=== PATIENT | female | born 1975 | race Caucasian/White ===

== ENCOUNTER 2019-01-27 20:49 | Emergency (ER) | payer SELFPAY ==
[~2019-01-27] VITALS: Ht 162.6 cm; Wt 86.5 kg
[2019-01-27 20:54] VITALS: BP 145/77; PULSE 87; RESP 18; Ht 162.6 cm; Wt 86.5 kg
[2019-01-27] MEDS ORDERED: KETOROLAC 60 MG INJ IM STA (21:41)
--- NOTE | 2019-01-27 21:44 | ERD ---
ER Documentation Chief Complaint Chief Complaint PAIN/ NUMBNESS TO LEFT THUMB. SHORT ARM CAST WITH SCREWS INSERTED. HPI 43-year-old presents with complaint of pain and numbness to the left thumb. Patient states that she fractured the thumb a year ago and the pain never fully resolved, therefore she had to get surgery 3 weeks ago. She is unsure what surgery she got. States that the pain started this morning. She is due to get her cast off this Friday. Denies any fevers, chills, swelling. ROS All systems reviewed and are negative except as per history of present illness. Medications Home Meds Active Scripts Ibuprofen* (Motrin*) 600 Mg Tab, 600 MG PO Q6, #30 TAB Prov:DAVID SONG 01/27/19 Allergies Allergies: Coded Allergies: codeine (Verified Allergy, Unknown, 01/27/19) morphine (Verified Allergy, Unknown, 01/27/19) PMhx/Soc History of Surgery: Yes (left first digit joint replacement) Anesthesia Reaction: No Hx Neurological Disorder: No Hx Respiratory Disorders: No Hx Cardiac Disorders: No Hx Psychiatric Problems: No Hx Miscellaneous Medical Probl: No Hx Alcohol Use: No Hx Substance Use: No Hx Tobacco Use: No Smoking Status: Never smoker FmHx Family History: No diabetes, No coronary disease, No other Physical Exam Vitals Vital Signs Date Temp Pulse Resp B/P (MAP) Pulse Ox O2 O2 Flow FiO2 Time Delivery Rate 01/27/19 98.4 87 18 145/77 99 20:54 (99) Physical Exam Const: No acute distress Head: Atraumatic Eyes: Normal Conjunctiva ENT: Normal External Ears, Nose and Mouth. Neck: Full range of motion. No meningismus. Resp: Clear to auscultation bilaterally Cardio: Regular rate and rhythm, no murmurs Abd: Soft, non tender, non distended. Normal bowel sounds Skin: No petechiae or rashes Back: No midline or flank tenderness Left upper extremity: Cast was removed off of left thumb and wrist. There is tenderness to palpation over left thumb with no numbness. There is no edema, erythema, ecchymosis, or lori deformity noted. Overlying skin is intact. Compartments are soft and warm. There is no pallor or cyanosis. Range of motion, distal pulses, and distal sensation is intact. There is normal cap refill. No signs of infection at the incision site. Neur: Awake and alert Psych: Normal Mood and Affect Results 24 hrs Current Medications Medications Dose Sig/Shorty Start Time Status Last (Trade) Ordered Route PRN Stop Time Admin Dose Reason Admin Ketorolac 60 mg ONCE STAT 01/27/19 DC 01/27/19 Tromethamine IM 21:41 22:13 (Toradol) 01/27/19 21:42 Procedures/MDM MDM: Patient was given Toradol in the ER. Per Dr. Delarosa, patient's cast was removed to assess for compartment syndrome. There are no signs of compartment syndrome. In addition, patient is neurovascularly intact. Pulses are intact. There is sensation that is intact. Compartments were all soft and warm. Patient was advised to follow-up with her orthopedist tomorrow regarding the pain. There are no signs of infection over the surgery site. Patient given ibuprofen for pain as she does not tolerate opiates. I have low suspicion for neurovascular compromise, compartment syndrome, fracture, osteomyelitis, septic joint, blood clot, or other emergent condition. At this time, patient is stable for discharge and outpatient management. I have instructed the patient to follow-up with his/her primary care physician in 1-2 days. I have discussed with the patient the possibility of needing to see a specialist for further workup and imaging studies if symptoms persist. I have instructed the patient to promptly return to the ER for any new or worsening symptoms including but not limited to increased pain, fever, nausea, vomiting, weakness or LOC. The patient and/or family expressed understanding of and agreement with this plan. All questions were answered. Home care instructions were provided. DISCLAIMER: Inadvertent spelling and grammatical errors are likely due to EHR/dictation software use and do not reflect on the overall quality of patient care. Also, please note that the electronic time recorded on this note does not necessarily reflect the actual time of the patient encounter. Departure Diagnosis: Primary Impression: Postoperative complication Condition: Stable DAVID SONG Jan 27, 2019 21:44
[2019-01-27] MEDS ORDERED: IBUP-1542 PO (21:48)
== END 2019-01-28 00:38 | disposition home or self-care (01) ==
LOC: FTE 20:49
DX: M79.645 Pain in left finger(s) (principal)
CPT/HCPCS: 29125; 96372; 99284; J1885